=== PATIENT | female | born 1980 | race Caucasian/White ===

== ENCOUNTER 2016-05-28 03:48 | Emergency (ER) | payer MEDICAID ==
[~2016-05-28] VITALS: Ht 157.5 cm; Wt 84.0 kg
[~2016-05-28 03:48] MED LIST: PNV1TABL43 PO
[2016-05-28 03:53] VITALS: Ht 157.5 cm; Wt 84.0 kg
[2016-05-28] MEDS ORDERED: AMO500 PO (04:15)
[2016-05-28] MEDS ORDERED: IBUP-1542 PO (04:15)
[2016-05-28] MEDS ORDERED: NPH10OT LEFT EAR (04:15)
--- NOTE | 2016-05-28 04:21 | ERD ---
ER Documentation Chief Complaint Date/Time DATE: 05/28/16 TIME: 04:17 Chief Complaint Left ear pain x3 days HPI 36-year-old female presents to emergency department for complaints of left ear pain for 3 days. Patient described the pain as throbbing pain, 8/10 scale, Better or worse with anything. Patient took some [id number] ibuprofen to help with symptoms are gradually. Patient denies any foreign body sensation in the ear. Patient denies any ear discharge. Patient denies any problems with hearing. ROS All systems reviewed and are negative except as per history of present illness. Medications Home Meds Active Scripts Neomycin/Polymyxin/Hydrocort* (Cortisporin* Otic) 10 Ml Susp, 4 DROP LEFT EAR QID for 7 Days, EA Prov:JUANY YA AUDIOVISUAL TECH 05/28/16 Ibuprofen* (Motrin*) 600 Mg Tab, 600 MG PO Q6H Y for PAIN AND OR ELEVATED TEMP, #30 TAB Prov:JUANY YA AUDIOVISUAL TECH 05/28/16 Amoxicillin* (Amoxicillin*) 500 Mg Cap, 500 MG PO TID for 10 Days, CAP Prov:JUANY YA AUDIOVISUAL TECH 05/28/16 Reported Medications Vit/Fe Fumarate/Fa* ( Vitamin Tablet*) 1 Tab Tablet, 1 TAB PO DAILY, TAB 05/14/14 Allergies Allergies: Coded Allergies: No Known Allergies (Verified Allergy, Mild, 05/14/14) PMhx/Soc Medical and Surgical Hx: pt denies Medical Hx, pt denies Surgical Hx Hx Alcohol Use: No Hx Substance Use: No Hx Tobacco Use: No Smoking Status: Never smoker FmHx Family History: No coronary disease, No diabetes, No other Physical Exam Vitals Vital Signs Date Time Temp Pulse Resp B/P Pulse Ox O2 Delivery O2 Flow Rate FiO2 05/28/16 03:53 97.9 71 18 151/81 97 Physical Exam GENERAL: The patient is well developed and appropriate for usual state of health, in no apparent distress. HEENT: Atraumatic. Ears: Left ear tympanic membrane is noted to be erythematous and bulging, ear canal is swollen and erythematous with purulent discharge from left ear. Normal right tympanic membrane, no erythema or bulging. No right ear canal swelling. No right ear discharge. Nose: normal nasal turbinates, no erythema or swelling. Normal nasal discharge. Throat: oropharynx clear. No tonsillar swelling or tonsillar exudates. No lymphadenopathy. CHEST: Clear to auscultation bilaterally. There are no rales, wheezes or rhonchi. HEART: Regular rate and rhythm. No murmurs, clicks, rubs or gallops. No S3 or S4. ABDOMEN: Soft, nontender and nondistended. Good bowel sounds. No rebound or guarding. No gross peritonitis. No gross organomegaly or masses. No Jaramillo sign or McBurney point tenderness. BACK: No midline or flank tenderness. EXTREMITIES: Equal pulses bilaterally. There is no peripheral clubbing, cyanosis or edema. No focal swelling or erythema. Full range of motion. Grossly neurovascularly intact. NEURO: Alert and oriented. Cranial nerves 2-12 intact. Motor strength in all 4 extremities with 5/5 strength. Sensation grossly intact. Normal speech and gait. SKIN: There is no apparent rash or petechia. The skin is warm and dry. HEMATOLOGIC AND LYMPHATIC: There is no evidence of excessive bruising or lymphedema. No gross cervical, axillary, or inguinal lymphadenopathy. Procedures/MDM Medical decision making: Patient symptoms like it consistent with left otitis media and externa. No symptoms of mastoiditis at this time. No symptoms of sepsis at this time. Patient appears well and is hemodynamically stable. No symptoms of foreign body in the ear. No tympanic membrane perforation noted. Patient was given a prescription for Corticosporin otic drops, ibuprofen, amoxicillin, is advised to avoid using Q-tips to clean the ear. Patient was advised to take medications as prescribed. Patient is advised to return to emergency department for any worsening symptoms Departure Diagnosis: Primary Impression: Left otitis externa Otitis externa type: unspecified type Chronicity: acute Qualified Code: H60.502 - Acute otitis externa of left ear, unspecified type Additional Impression: Left otitis media Otitis media type: serous Chronicity: acute Recurrence: not specified as recurrent Qualified Code: H65.02 - Acute serous otitis media of left ear, recurrence not specified Condition: Stable Patient Instructions: Otitis Media, Abx Tx (Adult), External Ear Infection ( Adult) JUANY YA NP May 28, 2016 04:20
[2016-05-28 04:33] VITALS: BP 133/81; PULSE 71
== END 2016-05-28 04:33 | disposition home or self-care (01) ==
LOC: FTE 03:48
DX: H60.502 Unspecified acute noninfective otitis externa, left ear (principal); H65.02 Acute serous otitis media, left ear
CPT/HCPCS: 99283